=== PATIENT | female | born 1990 | race American Indian/Alaskan Native ===

== ENCOUNTER 2021-03-25 14:15 | Emergency (ER) | payer MEDICAID ==
[2021-03-25] MEDS ORDERED: LORazepam 2 MG/ML VIAL ONE (14:33)
[2021-03-25 14:36] VITALS: BP 156/111
[2021-03-25] MEDS ORDERED: SODIUM CHLORIDE 0.9% 1000 ML 1,000 ML IV ONE (14:39)
--- NOTE | 2021-03-25 14:39 | Emergency Department Report ---
ED Seizure HPI - General Chief Complaint: Seizure Stated Complaint: SEIZURE Time Seen by Provider: 03/25/21 14:32 Source: patient Mode of arrival: Stretcher Limitations: No Limitations - History of Present Illness Initial Comments: Patient was brought in by EMS secondary to seizure activity. She was reportedly at an outpatient imaging center getting an MRI. The MRI was without contrast. She reportedly started having seizures. EMS was called. They administered Ativan 2 mg. Patient had "been in and out." She reportedly told EMS that she did not take her seizure medication. History is obtained from EMS as the patient is moving here that EMS reports was her seizure activity. She was nonverbal. - Related Data Home Medications Medication Instructions Recorded Confirmed Last Taken Aspirin 325 mg PO QDAY 01/14/14 01/14/14 01/14/14 Ranitidine HCl [Zantac] 300 mg PO QHS 01/14/14 01/14/14 01/13/14 atenoloL [Tenormin] 12.5 mg PO DAILY 01/14/14 01/14/14 01/14/14 Allergies Allergy/AdvReac Type Severity Reaction Status Date / Time No Known Allergies Allergy Verified 01/14/14 12:11 ED Review of Systems ROS: Stated complaint: SEIZURE Other details as noted in HPI Comment: Unobtainable due to pts medical conditions (Possible seizure activity) ED Past Medical Hx - Past Medical History Previous Medical History?: Yes Hx Congestive Heart Failure: No Hx Diabetes: No Hx GERD: Yes Hx Seizures: Yes Hx Asthma: No Hx COPD: No Additional medical history: This is obtained per EMS - Surgical History Past Surgical History?: No Additional Surgical History: Obtained per EMS - Social History Smoking Status: Unknown if ever smoked Substance Use Type: None, Other (Cannot be obtained for the patient secondary to possible seizure activity) - Medications Home Medications: Home Medications Medication Instructions Recorded Confirmed Last Taken Type Aspirin 325 mg PO QDAY 01/14/14 01/14/14 01/14/14 History Ranitidine HCl [Zantac] 300 mg PO QHS 01/14/14 01/14/14 01/13/14 History atenoloL [Tenormin] 12.5 mg PO DAILY 01/14/14 01/14/14 01/14/14 History ED Physical Exam - General Limitations: No Limitations, Altered Mental Status, Other (Pulse ox noted normal) General appearance: other (Patient is moving about the bed. She does not have rhythmic movement. She is nonverbal, but does actually stop shaking and stare at me with noxious stimuli) - Head Head exam: Present: atraumatic, normocephalic, normal inspection - Eye Eye exam: Present: normal appearance, EOMI. Absent: scleral icterus - ENT ENT exam: Present: mucous membranes moist (No trauma), normal external ear exam - Neck Neck exam: Absent: meningismus - Respiratory Respiratory exam: Present: normal lung sounds bilaterally. Absent: respiratory distress - Cardiovascular Cardiovascular Exam: Present: regular rate, normal rhythm - GI/Abdominal GI/Abdominal exam: Present: soft. Absent: distended - Extremities Exam Extremities exam: Present: normal capillary refill. Absent: pedal edema - Neurological Exam Neurological exam: Present: other (Nonverbal. Patient is moving about the bed. She does respond to noxious stimuli appropriately) - Skin Skin exam: Present: warm, dry ED Course Vital Signs 03/25/21 14:23 Temperature 98.6 F Pulse Rate 70 Respiratory 16 Rate Blood Pressure 156/111 O2 Sat by Pulse 100 Oximetry - Reevaluation(s) Reevaluation #1: 03/25/21 14:38 EMS was met upon arrival. Patient seem to have some tremulous activity and shaking. She was not tachycardic. She actually stopped and responded to a sternal rub. IV and labs ordered. Old records reviewed. Reevaluation #2: 03/25/21 16:24 Patient was awake and conversant. There has been no seizure activity. Electrolytes were noted. Patient was discharged. ED Medical Decision Making - Lab Data Result diagrams: 03/25/21 14:52 03/25/21 14:52 - EKG Data -: EKG Interpreted by Me - EKG Data 03/25/21 15:25 EKG obtained shows a sinus rhythm with frequent PVCs in a pattern of bigeminy. Rate is 77. QRS is normal at 97. QT corrected is normal at 490. Patient has no underlying ST elevation to suggest STEMI. There is no underlying ST depression suggestive of ischemia. There is no old EKG for comparison. - Medical Decision Making Patient presented by EMS for possible seizure. At this time, there is no family history of epilepsy. She really did not seem to be postictal. She did respond to noxious stimuli while she was having 1 of these seizure type episodes. Patient will be referred to neurology for repeat evaluation and consideration of EEG. I would not automatically start antiepileptic medication at this time. We have had a discussion about risks associated with seizure type activity. She does have a safe place to go. Critical Care Time: No Critical care attestation.: If time is entered above; I have spent that time in minutes in the direct care of this critically ill patient, excluding procedure time. ED Disposition Clinical Impression: Seizure Qualifiers: Convulsion type: unspecified Qualified Code(s): R56.9 - Unspecified convulsions Disposition: 01 HOME / SELF CARE / HOMELESS Is pt being admited?: No Condition: Stable Instructions: Seizure, Adult, [id number] Additional Instructions: Drink plenty water. Avoid caffeine. Avoid flashing lights. Do not drive until released by your regular doctor or neurologist. Do not operate any type of machinery until released by your regular doctor or neurologist. Follow-up to get EEG completed. Referrals: GAEL BHATTI MD [Staff Physician] - 3-5 Days PRIMARY CAREMD [Primary Care Provider] - 3-5 Days Forms: Work/School Release Form(ED)
[2021-03-25] MEDS ORDERED: LORazepam 2 MG/ML VIAL IV ONE (14:42)
[2021-03-25 15:10] LABS: Mean Corpuscular HGB Conc 33 % (30-34); Mean Corpuscular Volume 90 fl (79-97); Platelet Count 331 K/mm3 (140-440); Red Cell Distribution Width 13.3 % (13.2-15.2)
[2021-03-25 15:29] LABS: Blood Urea Nitrogen 8 mg/dL (7-17); Calcium 8.9 mg/dL (8.4-10.2); Hemolysis Index 13
[2021-03-25 15:32] LABS: BUN/Creatinine Ratio 16
--- NOTE | 2021-03-26 09:14 | Electrocardiograph Report ---
[facility] Test Date: 2021-03-25 Test Time: 14:26:14 Pat Name: MACI DELANEY Department: Room: Gender: F Med Aide: RR : 1990 Requested By: MARIO PEOPLES Order Number: [id number] Reading MD: Mayo Lopez Measurements Intervals [place] Rate: 77 P: 52 DC: 166 QRS: 31 QRSD: 97 T: 25 QT: 432 QTc: 490 Interpretive Statements Sinus rhythm Ventricular bigeminy Probable left atrial enlargement No previous ECG available for comparison Electronically Signed On 03-26-2021 9:13:43 EDT by Mayo Lopez
== END 2021-03-25 16:55 | disposition home or self-care (01) ==
LOC: ED 14:15
DX: R56.9 Unspecified convulsions (principal); K21.9 Gastro-esophageal reflux disease without esophagitis; Z79.82 Long term (current) use of aspirin; Z79.899 Other long term (current) drug therapy
CPT/HCPCS: 36415; 80048; 82550; 83735; 85027; 93005; 96361; 96374; 99284; J2060; J7030

== ENCOUNTER 2021-09-23 11:43 | Emergency (ER) | payer MEDICAID ==
[2021-09-23] MEDS ORDERED: SULFAMETHOXAZOLE/TRIMETHOPRIM 800/160MG DS TAB PO ONE (14:17)
[2021-09-23] MEDS ORDERED: KETOROLAC 10 MG TAB PO ONE (14:17)
[2021-09-23] MEDS ORDERED: ACETAMINOPHEN W/CODEINE 300-30 MG TAB PO ONE (14:17)
--- NOTE | 2021-09-23 14:23 | Emergency Department Report ---
- General Chief complaint: Skin Rash Stated complaint: BREAKOUT/RASH ON LEGS Time Seen by Provider: 09/23/21 13:52 Source: patient Mode of arrival: Ambulatory Limitations: No Limitations - History of Present Illness Initial comments: 31-year-old black female with a past medical history of seizures presents to the emergency department for evaluation of left posterior upper thigh pain and swelling. She states that she noticed pain and swelling to the area a few days ago that has gotten progressively worse. She states that area is warm to touch and she has had same type of areas to come up to several areas on her buttocks and thighs over the last few months. She denies fever, nausea, and vomiting. MD complaint: abscess/boil -: Gradual, days(s) Tetanus Up to Date: yes (2-3) Location: LLE (Left posterior thigh) Severity: moderate, severe Severity scale (0 -10): 7 Quality: burning, aching Consistency: constant Worsens with: palpation Associated symptoms: denies other symptoms Treatments Prior to Arrival: none - Related Data Home Medications Medication Instructions Recorded Confirmed Last Taken Aspirin 325 mg PO QDAY 01/14/14 01/14/14 01/14/14 Ranitidine HCl [Zantac] 300 mg PO QHS 01/14/14 01/14/14 01/13/14 atenoloL [Tenormin] 12.5 mg PO DAILY 01/14/14 01/14/14 01/14/14 Previous Rx's Medication Instructions Recorded Last Taken Type Acetaminophen/Codeine [Tylenol 1 tab PO Q6H PRN #12 tab 09/23/21 Unknown Rx /Codeine # 3 tab] Naproxen [Naprosyn] 500 mg PO BID #14 tab 09/23/21 Unknown Rx Sulfamethoxazole/Trimethoprim 1 each PO BID #14 tab 09/23/21 Unknown Rx [Bactrim DS TAB] Allergies Allergy/AdvReac Type Severity Reaction Status Date / Time No Known Allergies Allergy Verified 01/14/14 12:11 Abscess Boil HPI - HPI Chief Complaint: Skin Rash Stated Complaint: BREAKOUT/RASH ON LEGS Time Seen by Provider: 09/23/21 13:52 Duration: 3 Days Location: Lower Extremity History: Yes Pain, Yes Purulent Drainage, Yes Previous History, No Fever, No Numbness, No Foreign Body, No Insect Bite Home Medications: Home Medications Medication Instructions Recorded Confirmed Last Taken Aspirin 325 mg PO QDAY 01/14/14 01/14/14 01/14/14 Ranitidine HCl [Zantac] 300 mg PO QHS 01/14/14 01/14/14 01/13/14 atenoloL [Tenormin] 12.5 mg PO DAILY 01/14/14 01/14/14 01/14/14 Previous Rx's Medication Instructions Recorded Last Taken Type Acetaminophen/Codeine [Tylenol 1 tab PO Q6H PRN #12 tab 09/23/21 Unknown Rx /Codeine # 3 tab] Naproxen [Naprosyn] 500 mg PO BID #14 tab 09/23/21 Unknown Rx Sulfamethoxazole/Trimethoprim 1 each PO BID #14 tab 09/23/21 Unknown Rx [Bactrim DS TAB] Allergies/Adverse Reactions: Allergies Allergy/AdvReac Type Severity Reaction Status Date / Time No Known Allergies Allergy Verified 01/14/14 12:11 ED Review of Systems ROS: Stated complaint: BREAKOUT/RASH ON LEGS Other details as noted in HPI Comment: All other systems reviewed and negative Constitutional: denies: chills, fever Respiratory: denies: shortness of breath, SOB with exertion, SOB at rest Cardiovascular: denies: chest pain, palpitations Gastrointestinal: denies: abdominal pain, nausea, vomiting Musculoskeletal: denies: back pain Neurological: denies: headache, weakness ED Past Medical Hx - Past Medical History Hx Congestive Heart Failure: No Hx Diabetes: No Hx GERD: Yes Hx Seizures: Yes Hx Asthma: No Hx COPD: No Additional medical history: This is obtained per EMS - Surgical History Additional Surgical History: Obtained per EMS - Social History Smoking Status: Unknown if ever smoked Substance Use Type: None, Other (Cannot be obtained for the patient secondary to possible seizure activity) - Medications Home Medications: Home Medications Medication Instructions Recorded Confirmed Last Taken Type Aspirin 325 mg PO QDAY 01/14/14 01/14/14 01/14/14 History Ranitidine HCl [Zantac] 300 mg PO QHS 01/14/14 01/14/14 01/13/14 History atenoloL [Tenormin] 12.5 mg PO DAILY 01/14/14 01/14/14 01/14/14 History Acetaminophen/Codeine [Tylenol 1 tab PO Q6H PRN #12 tab 09/23/21 Unknown Rx /Codeine # 3 tab] Naproxen [Naprosyn] 500 mg PO BID #14 tab 09/23/21 Unknown Rx Sulfamethoxazole/Trimethoprim 1 each PO BID #14 tab 09/23/21 Unknown Rx [Bactrim DS TAB] ED Physical Exam - General Limitations: No Limitations General appearance: alert, in no apparent distress - Head Head exam: Present: atraumatic, normocephalic - Eye Eye exam: Present: normal appearance. Absent: conjunctival injection - Neck Neck exam: Present: normal inspection, full ROM. Absent: tenderness, lymphadenopathy - Respiratory Respiratory exam: Present: normal lung sounds bilaterally. Absent: respiratory distress, wheezes, rales, rhonchi, stridor, chest wall tenderness - Cardiovascular Cardiovascular Exam: Present: regular rate, normal heart sounds - GI/Abdominal GI/Abdominal exam: Present: soft, normal bowel sounds. Absent: distended, t enderness, guarding, rebound, rigid - Extremities Exam Extremities exam: Absent: normal inspection - Expanded Lower Extremity Exam Left Upper Leg exam: Present: tenderness, swelling, erythema. Absent: normal inspection, abrasion, laceration, ecchymosis Neuro vascular tendon exam: Present: no vascular compromise. Absent: pulse deficit, abnormal cap refill, motor deficit, sensory deficit, extremity cold to touch, pallor 1 - Area 4 cm wide and about 10 cm long that is erythematous, edematous, and tender to any touch. Area noted to have marked in the center that has purulent drainage. - Back Exam Back exam: Present: normal inspection - Neurological Exam Neurological exam: Present: alert - Psychiatric Psychiatric exam: Present: normal affect, normal mood - Skin Skin exam: Present: warm, dry, intact, normal color ED Course Vital Signs 09/23/21 13:43 Temperature 98.0 F Pulse Rate 63 Respiratory 16 Rate Blood Pressure 178/124 O2 Sat by Pulse 100 Oximetry ED Medical Decision Making - Medical Decision Making 31-year-old black female with a past medical history of seizures presents to the emergency department for evaluation of left posterior upper thigh pain and swelling. She states that she noticed pain and swelling to the area a few days ago that has gotten progressively worse. She states that area is warm to touch and she has had same type of areas to come up to several areas on her buttocks and thighs over the last few months. She denies fever, nausea, and vomiting. Exam consistent with left upper thigh cellulitis possibly secondary to insect bite. Patient will be treated with 7-day course of Bactrim along with naproxen and Tylenol 3 to use as needed for the pain. She is advised to take medications as prescribed and follow-up with primary care provider if no improvement or worsening symptoms. She verbalized understanding of and agreement with plan of care. Critical care attestation.: If time is entered above; I have spent that time in minutes in the direct care of this critically ill patient, excluding procedure time. ED Disposition Clinical Impression: Cellulitis of left thigh Disposition: 01 HOME / SELF CARE / HOMELESS Is pt being admited?: No Does the pt Need Aspirin: No Condition: Stable Instructions: Cellulitis, Adult, [id number] Additional Instructions: Take medications as prescribed. Follow-up with primary care provider if no improvement or worsening symptoms. Return to the emergency department as needed. Prescriptions: Sulfamethoxazole/Trimethoprim [Bactrim DS TAB] 1 each PO BID #14 tab Naproxen [Naprosyn] 500 mg PO BID #14 tab Acetaminophen/Codeine [Tylenol /Codeine # 3 tab] 1 tab PO Q6H PRN #12 tab PRN Reason: Pain , Severe (7-10) Referrals: EVY PATEL MD [Staff Physician] - 3-5 Days Time of Disposition: 14:28
[2021-09-23] MEDS ORDERED: FLUCONAZOLE 200 MG TAB PO ONE (14:54)
[2021-09-23 15:16] VITALS: BP 160/120
== END 2021-09-23 15:14 | disposition home or self-care (01) ==
LOC: ED 11:43
DX: L03.116 Cellulitis of left lower limb (principal)
CPT/HCPCS: 99282